=== PATIENT | male | born 1975 | race Caucasian/White ===

== ENCOUNTER 2019-01-05 14:32 | Observation (INO) | payer BC ==
[~2019-01-05] VITALS: Ht 172.7 cm; Wt 74.4 kg
[~2019-01-05 14:32] MED LIST: PANTOPRAZOLE PO
--- NOTE | 2019-01-05 15:17 | Diagnostic Imaging Report ---
EXAMINATION: CXR 1 W - HOP INDICATION: Chest pain, shortness of breath COMPARISON: None FINDINGS: TUBES and LINES: None. LUNGS: Lungs are well inflated. Lungs are clear. There is no evidence of pneumonia or pulmonary edema. PLEURA: No pleural effusion or pneumothorax. HEART AND MEDIASTINUM: The cardiomediastinal silhouette is unremarkable. BONES AND SOFT TISSUES: No acute osseous lesion. Soft tissues are unremarkable. UPPER ABDOMEN: No free air under the diaphragm. Status post cholecystectomy. IMPRESSION: No acute radiographic abnormality. Signed by: Dr. Jerica Art MD on 01/05/2019 3:13 PM
[2019-01-05] MEDS ORDERED: ASPIRIN 81 MG CHEW TAB PO ONE (16:15)
[2019-01-05] MEDS ORDERED: ASPIRIN 81 MG ENTERIC COATED PO STA (16:16)
--- OUTSIDE RECORDS SUMMARY | 2019-01-05 16:26 | XMS REPORT ---
Author Author [facility] Address Unknown Phone Unavailable Care Team Providers Care Science Manager Name Role Phone Steve MARTINEZ Unavailable Unavailable Problems This patient has no known problems. Allergies, Adverse Reactions, Alerts This patient has no known allergies or adverse reactions. Medications This patient has no known medications. Results Test Description Test Time Test Comments Text Results Atomic Results Result Comments CXR 1 [facility] 2019-01-05 15:12:00 [place] [address] Patient Name: EDUARD BRADFORD MR #: [id number] : 1975 Age/Sex: 43/M Req #: [id number] Adm Physician: Ordered by: ANTONIO MARTINEZ MD Report #: [id number] Location: [facility] Room/Bed: Procedure: [id number] HOPD/CXR 1 [facility] Exam Date: 01/05/19 Exam Time: 1500 REPORT STATUS: Signed EXAMINATION: CXR 1 [facility] INDICATION: Chest pain, shortness of breath COMPARISON: None FINDINGS: TUBES and LINES: None. LUNGS: Lungs are well inflated. Lungs are clear. There is no evidence of pneumonia or pulmonary edema. PLEURA: No pleural effusion or pneumothorax. HEART AND MEDIASTINUM: The cardiomediastinal silhouette is unremarkable. BONES AND SOFT TISSUES: No acute osseous lesion. So ft tissues are unremarkable. UPPER ABDOMEN: No free air under the diaphragm. Status post cholecystectomy. IMPRESSION: No acute radiographic abnormality. Signed by: Dr. Luz Maria Westfall MD on 01/05/2019 3:13 PM Dictated By: LUZ MARIA WESTFALL MD [id number] Transcribed By: DAVID on 01/05/19 2765 COPY TO: ANTONIO MARTINEZ MD
--- NOTE | 2019-01-05 17:13 | NUR ---
[facility] CALLED ETA 60 MIN
--- NOTE | 2019-01-05 17:16 | NUR ---
PT RESTING, VITAL SIGNS STABLE, PT AWARE OF POC WITH TRANSFER TO [facility].
--- NOTE | 2019-01-05 18:15 | NUR ---
PT RESTING, VITAL SIGNS STABLE, FAMILY AT BEDSIDE, PT VOICES NO COMPLAINTS AT THIS TIME.
--- NOTE | 2019-01-05 18:41 | NUR ---
[facility] HERE FOR TRANSPORT REPORT GIVEN
[2019-01-05 19:00] VITALS: BP 132/78
--- NOTE | 2019-01-05 19:33 | NUR ---
patient is a new admit that arrived via stretcher. patient is alert and oriented. patient has been helped into the bed. bed is in the lowest position and call zamorano is within reach. will continue to monitor patient.
[2019-01-05 20:00] VITALS: BP 132/78
[2019-01-05 20:30] LABS: CREATINE KINASE MB 1.4 ng/mL (0-5.0)
[2019-01-05] MEDS ORDERED: MORPHINE SULFATE 2 MG/ML SYR 1ML IV PRN (21:15)
[2019-01-05] MEDS ORDERED: ACETAMINOPHEN 325 MG TAB PO PRN (21:15)
[2019-01-05] MEDS ORDERED: ONDANSETRON HCL INJ 2MG/ML 2ML 2 MG/ML VIAL IV PRN (21:15)
[2019-01-05] MEDS ORDERED: MORPHINE SULFATE INJ 4 MG/ML INJ 1ML IV PRN (21:30)
--- NOTE | 2019-01-05 22:00 | NUR ---
Spoke with consulted direct support staff member regarding routine consult. French Binder states call me if cardiac labs are abnormal. will continue to monitor patient labs.
[2019-01-06] VITALS: BP 124/75
[2019-01-06 04:00] VITALS: BP 115/80
[2019-01-06 04:07] LABS: CHOL/HDL RATIO 3.8 (3.9-4.7)
[2019-01-06 04:11] LABS: CREATINE KINASE 92 IU/L (30-200)
[2019-01-06] MEDS: SODIUM CHLORIDE 0.9% 1000ML 1,000 ML IV SCH ×2 (06:25→07:15)
--- NOTE | 2019-01-06 07:02 | NUR ---
report given to day nurse. patient is resting comfortably in bed. bed is in lowest position and call zamorano is within reach.
[2019-01-06 08:27] VITALS: BP 121/76
[2019-01-06] MEDS ORDERED: ASPIRIN 81 MG ENTERIC COATED PO SCH (09:00)
--- NOTE | 2019-01-06 09:58 | Consultation ---
DATE OF CONSULTATION: January 06, 2019 REASON FOR CONSULTATION: Chest pain. CHIEF COMPLAINT: Chest pain. HPI: This is a 43-year-old male very active with a history of GERD, status post hiatal repair and Ronaldo fundop[place] [address] Bhupinder Hill. Patient presents to [facility] with apparently complaints of chest pain for 10 days. Reports that his chest pain has tightness, retrosternal and worse with laying down. Also, with a burning sensation. Patient reports that he has extensive stomach issues with gastritis. Was on therapy. However, stopped therapy about 2 years ago. Patient reports that he is very active. He goes to the gym and works out most days of the week without any chest pains. Reports the chest pain is more when he is laying flat and also when he turns to his left side. However, yesterday the patient reported he had some blurry vision and some shortness of breath and that is why he came to the ER. However, he reports blurry vision and shortness of breath for about 10 days also. Currently, the patient denies any distress. Feels comfortable at this time. EKG showing normal sinus rhythm. Cardiac enzymes negative times 2 thus far. PAST MEDICAL HISTORY: Reflux. SURGICAL HISTORY: Hiatal repair with Ronaldo fundoplication and cholecystectomy in 2013, and appendectomy. 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 He denies any tobacco use. Positive for social alcohol use. FAMILY HISTORY: Mother is alive apparently with a history of hypothyroidism. Father is alive apparently with history of pituitary tumor. ALLERGIES: PENICILLIN. HOME MEDICATIONS: Denies any home medications. REVIEW OF SYSTEMS GENERAL: He denies any weight changes, fatigue, weakness, fevers, chills, night sweats, skin rash. SKIN: No rashes or sores. HEENT: Denies any nausea, vomiting, vision changes. Reports blurred vision. No double vision, earaches, any tinnitus, vertigo, epistaxis. CARDIAC: Positive for chest pain as in HPI. Denies any orthopnea, any PND, any lower extremity edema. RESPIRATORY: Positive for shortness of breath. Denies any coughing, hemoptysis. GI: Reports good appetite. Denies any nausea, vomiting, diarrhea. However, has abdominal discomfort and burning sensation in the epigastric region. URINARY: Denies any frequency, urgency, any nocturia, or dysuria. VASCULAR: Denies any lower extremity edema. MUSCULOSKELETAL: Denies any muscle weakness. Positive for joint pains though. NEUROLOGIC: Denies any numbness, tingling, tremors, weakness, paralysis, fainting, blackouts. HEMATOLOGY: Denies any anemia, easy bruising. ENDOCRINE: Denies any heat or cold intolerance, any polyuria, polydipsia, or polyphagia. PHYSICAL EXAMINATION VITAL SIGNS: Temperature 98.6, pulse 79, respiratory rate 18, blood pressure 121/76, pulse ox 96% on room air. GENERAL: Appears stated age. Reliable informant. No acute distress. SKIN: No rashes or bruises noted. HEENT: Normocephalic. Pupils are equal and reactive. Extraocular movements intact. Trachea midline. Oral mucosa pink. No thyromegaly noted. No JVD. No carotid bruits noted. HEART: Regular rate and rhythm. No murmurs, clicks or gallops LUNGS: Bilateral breath sounds clear to auscultation. ABDOMEN: Soft, nontender and nondistended. Does have several laparoscopic scars. MUSCULOSKELETAL: Good muscle strength throughout. VASCULAR: Plus 2 bilateral radial pulses. Plus 2 DP and PT bilateral pulses. NEUROLOGIC: Cranial nerves II-XII seem intact. Troponin initial was 0.003 and next less than 0.001. ALT 108, HDL 48. BUN 15, creatinine 1.3. EKG showing normal sinus rhythm. D-dimer less than 100. ASSESSMENT AND PLAN 1. Chest pain. 2. Abdominal pain. 3. Reflux. PLAN: Patient presents with chest pain times 10 days with mixed features. However, features seem more from GI given his symptoms and also his history. Patient is very concerned with cardiac status. Will go ahead and do a stress test to evaluate cardiac status. Also, we will do an echo to evaluate heart function and structure. Will continue to monitor the patient and further recommendations post ischemic evaluation. Thank you very much for this consult. DICTATED BY ELOISE AVILES NP Job#: [id number] [place]
--- NOTE | 2019-01-06 10:11 | Cardiology Report ---
DATE OF STUDY: January 06, 2019 NUCLEAR STRESS TEST TECHNICAL DETAILS: The protocol is Ward with 85% target heart rate at 150 per minute. RESULTS 1. Patient exercised for a total of 10 minutes and 31 seconds. 2. Heart rate increased to 153 per minute. 3. Blood pressure increased from 120/90 to 148/75. 4. No chest pain. 5. No EKG changes. IMPRESSION: Negative cardiac stress test with good exercise tolerance. Job#: [id number] [place]UMAR
[2019-01-06 11:43] VITALS: BP 132/82
--- NOTE | 2019-01-06 12:37 | NUR ---
SOCIAL WORK INITIAL ASSESSMENT Cap Coverer to bedside to discuss plan of care with patient/family. CM/SW role and care transitions discussed. Anticipated discharge plan discussed along with duration of care. CM/SW discussed patients right to make decisions in care. CM/SW work hours given. Patient lives: IN OWN HOUSE BY SELF Admit/Transfer: VIA ED FROM HOME POA/Emergency contact: FRIEND OMI [phone] Current/Previous Home Health: NONE PCP/Follow-up Care: [facility]ET Current/Previous DME: NONE Other Services: NONE Employment Status: [employer]NS [employer] Areas of Concerns: NONE Referral Needs: NONE Education Needs: NONE IMM/RUTHERFORD given and signed (if applicable): NA Goal for discharge: RETURN HOME CM/SW left business card at the bedside with contact information. Name and number was also written on the patients whiteboard. Patient verbalized understanding of discussion. CM will follow-up with ongoing discharge and transition of care needs.
--- NOTE | 2019-01-06 14:21 | History and Physical ---
CHIEF COMPLAINT: Chest pain. HISTORY OF PRESENT ILLNESS: This is a 43-year-old male with no past medical history. He comes in with complaint of substernal left-sided chest pain that has been ongoing for the last several days. 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 He thought initially that this was the etiology of his chest pain. He stopped them, and his chest pain continued to occur. He came into the ED for further evaluation. He reports it more as a tightness sensation in which he has a grabbing sensation in the left chest wall. He said it hurts upon movement and ambulation as well. Patient reports it is more like a rubber band tension. The patient was seen and evaluated at bedside on the medical floor. Currently doing well with no other complaints. Cardiology has been consulted. REVIEW OF SYSTEMS PERTINENT POSITIVES: Chest pain. PERTINENT NEGATIVES: Denies any palpitations, nausea, vomiting, diarrhea, dysuria, hematuria, frequency, urgency, lightheadedness, dizziness, abdominal pain, headaches, shortness of breath, cough, congestion, fever or any other complaints. The rest of the 14-point review of systems have been reviewed with the patient and are negative. ALLERGIES: PENICILLIN. HOME MEDICATIONS: He takes just Protonix. PAST MEDICAL HISTORY: He has acid reflux. PAST SURGICAL HISTORY: Reports none. FAMILY HISTORY: Hypertension and diabetes. SOCIAL HISTORY: No drugs. No alcohol. Does not smokes. Has good social support. VITAL SIGNS: Temperature is 98.6, pulse 79, respiratory rate 18, blood pressure 121/76, pulse ox 96% on room air. LAB FINDINGS: There is no CBC. Chemistry shows CK 92, CK-MB 0.8. Troponins were all negative. LDL is 108. TSH is pending. PHYSICAL EXAMINATION GENERAL: Not in acute distress. Alert and oriented x3. Cooperative on exam. HEENT: Head is normocephalic and atraumatic. Eyes: Pupils are equal, round and reactive to light bilaterally. Extraocular movements intact bilaterally. NECK: Supple. Good range of motion. Throat: No evidence of any erythema or exudates in the posterior pharynx. Has poor dentition. PULMONARY: Clear to auscultation bilaterally. No wheezing. No rales. No rhonchi. No crackles appreciated. CARDIOVASCULAR: Positive S1 and S2. No murmurs, rubs or gallops appreciated. ABDOMEN: Soft, nondistended and nontender to palpation. Bowel sounds present. MUSCULOSKELETAL: Strength is 5/5 throughout. No evidence of any musculoskeletal deficit on examination. No weakness appreciated. NEUROLOGICAL: Cranial nerves II through XII are grossly intact. No evidence of any neurological deficits on exam. SKIN: Intact. Warm to touch. Good cap refill. PSYCHIATRIC: Normal affect and mood. EXTREMITIES: No edema. Good range of motion throughout. IMPRESSION 1. Chest pain, likely atypical in nature. 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 PLAN: At this time, trend troponins and cardiac enzymes. Continue cardioprotective meds. EKG shows normal sinus rhythm. Cardiology consultation for stress test. Scheduled for later today. Get a lipid panel. Resume the same home medications. Job#: [id number]
--- NOTE | 2019-01-06 17:41 | Discharge Summary ---
FINAL DISCHARGE DIAGNOSES 1. Atypical chest pain. 2. Musculoskeletal pain due to body weight lifting. 3. Acid reflux. CONSULTANTS: Cardiology. VITAL SIGNS: Temperature is 98.6, pulse 79, respiratory rate is 18, blood pressure 121/76, pulse ox 96% on room air. LAB FINDINGS: Show troponins were negative. LDL is 108. Chest x-ray was found to be negative. HOSPITAL COURSE: This is a 43-year-old male who came into the ED with complaints of left-sided pain. Cardiology was consulted. Cardiac enzymes were found to be negative. Cardiac stress test was performed and found to be negative. The patient's chest pain all resolved and likely due to musculoskeletal etiology. Cardiology cleared the patient for discharge home. At this time, the patient was evaluated. He is doing well. He is at baseline with no other complaints. On the day of discharge, vital signs stable and labs remained stable. The patient was seen and evaluated thoroughly on the day of discharge. No other complaints. The patient verbalized understanding and agrees to plan of care. Follow up with me as an outpatient and with the primary care physician in 1 week's time. MEDICATIONS: See med reconciliation form. DISPOSITION: Home. CONDITION: Stable. DIET: Heart-healthy. In the event of any worsening symptoms, the patient was advised to come back to the ED for further evaluation. Discharge summary took greater than 35 minutes. ALESSANDRO RIVERA MD Job#: [id number] [place]
== END 2019-01-06 13:07 | disposition home or self-care (01) ==
LOC: FSED 14:32 → ERHOLD 16:14 → IMCU 18:52
PROVIDERS: ADMIT Internal Medicine; ATTEND Internal Medicine
DX: R07.89 Other chest pain (principal); M79.18 Myalgia, other site; K21.9 Gastro-esophageal reflux disease without esophagitis; R10.9 Unspecified abdominal pain
CPT/HCPCS: 36415 ×2; 71045; 80053; 80061; 80307; 81003; 82550 ×2; 82553 ×2; 84443; 84484 ×2; 85025; 85379; 93005; 93017; 93306; 99284; G0378 ×2; J7030

== ENCOUNTER 2019-08-11 08:58 | Emergency (ER) | payer BC ==
[~2019-08-11] VITALS: Ht 167.6 cm; Wt 74.4 kg
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
== END 2019-08-11 10:45 | disposition home or self-care (01) ==
LOC: ER 08:58
DX: G43.909 Migraine, unspecified, not intractable, without status migrainosus (principal); J01.20 Acute ethmoidal sinusitis, unspecified
CPT/HCPCS: 70450; 72125; 99284

== ENCOUNTER 2021-02-13 17:52 | Emergency (ER) | payer BC ==
[~2021-02-13] VITALS: Ht 170.2 cm; Wt 74.8 kg
[2021-02-13] MEDS ORDERED: KETOROLAC TROMETHAMINE 30 MG/ML VIAL IV STA (18:25)
[2021-02-13] MEDS ORDERED: ASPIRIN 81 MG CHEW TAB PO ONE (18:30)
[2021-02-13 18:49] LABS: BASOPHILS # (AUTO) 0.1 (0.0-0.1); BASOPHILS % 0.7 % (0.0-1.0); EOSINOPHILS # (AUTO) 0.1 (0.0-0.4); HEMATOCRIT 50.6 % (38.2-49.6); HEMOGLOBIN 17.2 g/dL (14.0-18.0); LYMPHOCYTES # (AUTO) 3.3 (1.0-3.2); LYMPHOCYTES % 26.7 % (18.0-39.1); MEAN CORPUSCULAR HEMOGLOBIN 29.9 pg (28-32); MEAN CORPUSCULAR VOLUME 87.8 fL (81-99); MONOCYTES # (AUTO) 1.1 (0.2-0.8); MONOCYTES % 9.1 % (4.4-11.3); NEUTROPHILS # (AUTO) 7.7 (2.1-6.9); NEUTROPHILS % 62.2 % (38.7-80.0); PLATELET COUNT 237 x10e3/uL (140-360); RED BLOOD COUNT 5.76 x10e6/uL (4.3-5.7); RED CELL DISTRIBUTION WIDTH 12.4 % (11.7-14.4)
[2021-02-13 19:10] LABS: ALANINE AMINOTRANSFERASE 42 IU/L (0-55); ALBUMIN 4.7 g/dL (3.5-5.0); ALBUMIN/GLOBULIN RATIO 1.4 (0.8-2.0); ALKALINE PHOSPHATASE 68 IU/L (40-150); ANION GAP 17.6 mmol/L (8-16); BLOOD UREA NITROGEN 15 mg/dL (7-26); BUN/CREATININE RATIO 13 (6-25); CALCIUM 9.5 mg/dL (8.4-10.2); CARBON DIOXIDE 25 mmol/L (22-29); CHLORIDE 100 mmol/L (98-107); CREATINE KINASE 163 IU/L (30-200); CREATININE, SERUM 1.16 mg/dL (0.72-1.25); EST GLOMERULAR FILTRATION RATE > 60 ML/MIN (60-); GLUCOSE 95 mg/dL (74-118); POTASSIUM 3.6 mmol/L (3.5-5.1); SODIUM 139 mmol/L (136-145)
[2021-02-13] MEDS ORDERED: SODIUM CHLORIDE 0.9% 50ML 50 ML ONE (19:32)
[2021-02-13] MEDS ORDERED: IOPAMIDOL 370 MG/ML 200 ML INFUS..BTL INJ ONE (19:32)
[2021-02-13 22:17] LABS: CLARITY,URINE SL CLOUDY (CLEAR); COLOR,URINE YELLOW (YELLOW)
[2021-02-13 22:18] LABS: AMPHETAMINES SCREEN,URINE NEGATIVE (NEGATIVE); BENZODIAZEPINES SCREEN,URINE NEGATIVE (NEGATIVE); KETONES,URINE 2+ (NEGATIVE); LEUKOCYTE ESTERASE ,URINE NEGATIVE (NEGATIVE); NITRITE,URINE NEGATIVE (NEGATIVE); PHENCYCLIDINE SCREEN,URINE NEGATIVE (NEGATIVE); PROTEIN,URINE DIPSTICK NEGATIVE (NEGATIVE); URINE UROBILINOGEN 1 mg/dL (0.2 - 1)
[2021-02-13 22:45] LABS: BACTERIA,URINE FEW /HPF; EPITHELIAL CELLS,URINE FEW /LPF; RBC,URINE 0-5 /HPF (0-5); WBC,URINE (MAN) 0-5 /HPF (0-5)
[2021-02-13] MEDS ORDERED: LIDOPATCH1 EACH TOP ×2 (22:46→22:52)
[2021-02-13] MEDS ORDERED: VALIUM2 MG PO ×2 (22:46→22:52)
[2021-02-14 01:18] VITALS: BP 133/65
[2021-02-14] MEDS ORDERED: LIDOCAINE 4% PATCH TP SCH (09:00)
== END 2021-02-14 01:23 | disposition home or self-care (01) ==
LOC: ER 18:25
DX: R07.89 Other chest pain (principal); K21.9 Gastro-esophageal reflux disease without esophagitis; F41.9 Anxiety disorder, unspecified
CPT/HCPCS: 36415; 71045; 74177; 80053; 80307; 81001; 82550; 82553; 83690; 84484; 85025; 93005; 99284; J1885; Q9967

== ENCOUNTER 2025-03-31 15:46 | Emergency (ER) | payer BC, OTHER ==
[~2025-03-31] VITALS: Ht 170.2 cm; Wt 74.8 kg
[~2025-03-31 15:46] MED LIST changes: +CEPHALEXIN500 MG PO; +DICYCLOMINE HCL20 MG PO; +KETOROLAC TROME10 MG PO; +LIDOPATCH1 EACH TOP; +VALIUM2 MG PO
[2025-03-31] MEDS ORDERED: SODIUM CHLORIDE FLUSH 10 ML SYR IV PRN (16:15)
[2025-03-31 16:19] LABS: BASOPHILS # (AUTO) 0.1 (0.0-0.1); BASOPHILS % 0.7 % (0.0-1.0); EOSINOPHILS # (AUTO) 0.3 (0.0-0.4); HEMATOCRIT 48.2 % (38.2-49.6); HEMOGLOBIN 16.8 g/dL (14.0-18.0); LYMPHOCYTES % 35.9 % (18.0-39.1); MEAN CORPUSCULAR HEMOGLOBIN 30.9 pg (28-32); MEAN CORPUSCULAR HGB CONC 34.9 g/dL (31-35); MEAN CORPUSCULAR VOLUME 88.8 fL (81-99); MONOCYTES # (AUTO) 0.6 (0.2-0.8); MONOCYTES % 7.5 % (4.4-11.3); NEUTROPHILS # (AUTO) 4.4 (2.1-6.9); NEUTROPHILS % 52.5 % (38.7-80.0); PLATELET COUNT 192 x10e3/uL (140-360); RED BLOOD COUNT 5.43 x10e6/uL (4.3-5.7); RED CELL DISTRIBUTION WIDTH 12.3 % (11.7-14.4); WHITE BLOOD COUNT 8.41 x10e3/uL (4.8-10.8)
[2025-03-31 16:24] VITALS: TEMP 98
[2025-03-31 16:36] LABS: ALANINE AMINOTRANSFERASE 23 IU/L (0-55); ALBUMIN 4.4 g/dL (3.5-5.0); ALBUMIN/GLOBULIN RATIO 1.5 (0.8-2.0); ALKALINE PHOSPHATASE 46 IU/L (40-150); BILIRUBIN,TOTAL 0.6 mg/dL (0.2-1.2); BLOOD UREA NITROGEN 18 mg/dL (7-26); BUN/CREATININE RATIO 14 (6-25); CALCIUM 9.8 mg/dL (8.4-10.2); CARBON DIOXIDE 25 mmol/L (22-29); CHLORIDE 103 mmol/L (98-107); CREATININE, SERUM 1.26 mg/dL (0.72-1.25); EST GLOMERULAR FILTRATION RATE 69 ML/MIN (>=60); GLUCOSE 97 mg/dL (74-118); SODIUM 137 mmol/L (136-145); TOTAL PROTEIN 7.3 g/dL (6.5-8.1)
[2025-03-31 16:43] LABS: TROPONIN I < 0.001 ng/mL (0-0.300)
[2025-03-31 17:00] VITALS: PULSE 80; RESP 16
[2025-03-31] MEDS ORDERED: NAPROXEN250 MG PO (17:06)
[2025-03-31 17:29] VITALS: BP 130/104; PULSE 72; TEMP 98.1; O2SAT 97
== END 2025-03-31 17:20 | disposition home or self-care (01) ==
LOC: ER 16:45
DX: R07.89 Other chest pain (principal); I10 Essential (primary) hypertension; K21.9 Gastro-esophageal reflux disease without esophagitis
CPT/HCPCS: 36415; 71045; 80053; 84484; 85025; 93005; 94760; 99283